=== PATIENT | female | born 1960 | race Two or more races ===

== ENCOUNTER 2016-09-22 17:42 | Emergency (ER) | payer BC ==
[~2016-09-22] VITALS: Ht 162.6 cm; Wt 90.7 kg
--- NOTE | 2016-09-22 18:06 | NUR ---
PT TO ED ROOM 02. PAIN TO R HAND RADIATING UP R ARM X 2 HOURS, DENIES ANY INJURY. A/A/O. SIDE RAISL UP. HOB ELEVATED. CONNECTED TO MONITOR. AWAITING EVALUATION BY ER PROVIDER.
--- NOTE | 2016-09-22 18:06 | NUR ---
PA AT BEDSIDE FOR EVAL.
--- NOTE | 2016-09-22 18:28 | NUR ---
Patient discharged to home in stable condition. Written and verbal after care instructions given. Patient verbalizes understanding of instruction. ambulatory with a steady gait. DAIJA WRAP TO R HAND APPLIED.
[2016-09-22 18:30] VITALS: BP 105/60
== END 2016-09-22 18:31 | disposition home or self-care (01) ==
LOC: ER 17:44
DX: M79.641 Pain in right hand (principal); I10 Essential (primary) hypertension
CPT/HCPCS: 99283; A4606; Z7610